=== PATIENT | female | born 1970 | race American Indian/Alaskan Native ===

== ENCOUNTER 2017-03-30 19:33 | Emergency (ER) | payer MEDICAID ==
[2017-03-30 20:21] VITALS: BP 127/80
== END 2017-03-31 00:11 | disposition left against medical advice (07) ==
LOC: ED 19:33
DX: L02.91 Cutaneous abscess, unspecified (principal); Z53.21 Procedure and treatment not carried out due to patient leaving prior to being seen by health care provider

== ENCOUNTER 2018-12-07 15:16 | Emergency (ER) | payer MEDICAID, OTHER ==
[2018-12-07 15:32] VITALS: BP 141/87
[2018-12-07] MEDS ORDERED: NORCO 5/325 PO STA (15:33)
--- NOTE | 2018-12-07 15:36 | Emergency Department Report ---
Blank Doc - Documentation Documentation: 48 Y/O FEMALE WITH FEW DAY HISTORY OF LEFT SHOULDER AND CHEST PAIN WORSE WITH ROM AND DEEP RESPIRATION. NO SPUTUM OR COUGH. DENIES TRAUMA.
--- NOTE | 2018-12-07 16:27 | XRay Report ---
PROCEDURE: XR CHEST ROUTINE 2V TECHNIQUE: PA and lateral chest radiographs were obtained. HISTORY: wheeze COMPARISONS: None. FINDINGS: There is hyperinflation consistent with COPD. There is prominence of the interstitial markings in both lungs with peribronchial thickening, acute v ersus chronic. There is no evidence of focal infiltrate, pneumothorax or pleural fluid collection. The cardiomediastinal silhouette is normal in appearance. The bony structures are notable for dextrocurvature of the thoracic spine. IMPRESSION: 1. Evidence of COPD. 2. Prominence in the interstitial markings in both lungs with peribronchial thickening, acute versus chronic. If further imaging is required, CT chest may be helpful. This document is electronically signed by Sherlyn Calderon MD., December 07 2018 04:25:04 PM ET
--- NOTE | 2018-12-07 16:29 | XRay Report ---
PROCEDURE: XR SHOULDER 2+V LT TECHNIQUE: Frontal and Y views left shoulder HISTORY: LEFT SHOULDER PAIN WITH ROM COMPARISONS: None FINDINGS: There is no evidence of acute fracture or subluxation. The joint spaces appear to be maintained. There appears to be deformity of the mid clavicle which may represent sequela of previous fracture. The soft tissues are unremarkable. IMPRESSION: 1. Appearance of deformity of the clavicle which may represent sequela of previous fracture. 2. Otherwise unremarkable study. If the patient remains symptomatic, MRI may be helpful. This document is electronically signed by Sherlyn Calderon MD., December 07 2018 04:27:34 PM ET
--- NOTE | 2018-12-07 16:53 | Emergency Department Report ---
ED Extremity Problem HPI - General Chief complaint: Pain General Stated complaint: CHEST PAIN/SHOULDERS/BACK PAIN Time Seen by Provider: 12/07/18 15:32 Source: patient Mode of arrival: Ambulatory Limitations: No Limitations - History of Present Illness Initial comments: Pt is a 48 yo female who presents to the ED with c/o left sided shoulder pain that began a couple of days ago. she states she has associated left sided neck pain and left chest wall pain. the patient states her pain is worse with movement. she states she woke up with it one morning and states she thought she slept wrong. She denies any fall, injury, or trauma. She denies any cough, fever, SOB, congestion, or any other sx. The patient denies any PMHx. She is a current every day smoker. pt states she had a clavicle fx when she was 19. Severity scale (0 -10): 5 - Related Data Previous Rx's Medication Instructions Recorded Last Taken Type Cyclobenzaprine [Flexeril] 10 mg PO QHS PRN #10 tablet 12/07/18 Unknown Rx Ibuprofen [Motrin 800 MG tab] 800 mg PO Q8HR PRN #20 tablet 12/07/18 Unknown Rx Prednisone [predniSONE 10 mg 10 mg PO .TAPER #1 tab.ds.pk 12/07/18 Unknown Rx (6-Day Pack, 21 Tabs)] Allergies Allergy/AdvReac Type Severity Reaction Status Date / Time No Known Allergies Allergy Verified 12/07/18 15:18 ED Review of Systems ROS: Stated complaint: CHEST PAIN/SHOULDERS/BACK PAIN Other details as noted in HPI Comment: All other systems reviewed and negative ED Past Medical Hx - Past Medical History Previous Medical History?: No - Surgical History Past Surgical History?: No - Social History Smoking Status: Never Smoker Substance Use Type: None - Medications Home Medications: Home Medications Medication Instructions Recorded Confirmed Last Taken Type Cyclobenzaprine [Flexeril] 10 mg PO QHS PRN #10 tablet 12/07/18 Unknown Rx Ibuprofen [Motrin 800 MG tab] 800 mg PO Q8HR PRN #20 tablet 12/07/18 Unknown Rx Prednisone [predniSONE 10 mg 10 mg PO .TAPER #1 tab.ds.pk 12/07/18 Unknown Rx (6-Day Pack, 21 Tabs)] ED Physical Exam - General Limitations: No Limitations General appearance: alert, in no apparent distress - Head Head exam: Present: atraumatic, normocephalic - Eye Eye exam: Present: normal appearance, PERRL - Neck Neck exam: Present: normal inspection, full ROM, other (no midline c-spine tenderness, no step offs, no deformities ) - Respiratory Respiratory exam: Present: normal lung sounds bilaterally, chest wall tenderness (reproducible left anterior chest wall pain to palpation ). Absent: respiratory distress, wheezes, rales, rhonchi, stridor, accessory muscle use, decreased breath sounds, prolonged expiratory - Cardiovascular Cardiovascular Exam: Present: regular rate, normal rhythm, normal heart sounds. Absent: systolic murmur, diastolic murmur, rubs, gallop - Extremities Exam Extremities exam: Present: other (pt has FROM of the bilateral fingers, wrists, elbows, and shoulders with no difficulty, pt is neurovascularly intact, pt has bony prominence in the left clavicle from prior clavicle fx, pt has TTP over the left trapzeius muscle) - Neurological Exam Neurological exam: Present: alert, oriented X3, CN II-XII intact, normal gait. Absent: motor sensory deficit - Psychiatric Psychiatric exam: Present: normal affect, normal mood - Skin Skin exam: Present: warm, dry, intact ED Course Vital Signs 12/07/18 15:29 Temperature 98.3 F Pulse Rate 70 Respiratory 16 Rate Blood Pressure 141/87 [Left] O2 Sat by Pulse 100 Oximetry ED Medical Decision Making - Radiology Data Radiology results: report reviewed PROCEDURE: XR SHOULDER 2+V LT TECHNIQUE: Frontal and Y views left shoulder HISTORY: LEFT SHOULDER PAIN WITH ROM COMPARISONS: None FINDINGS: There is no evidence of acute fracture or subluxation. The joint spaces appear to be maintained. There appears to be deformity of the mid clavicle which may represent sequela of previous fracture. The soft tissues are unremarkable. IMPRESSION: 1. Appearance of deformity of the clavicle which may represent sequela of previous fracture. 2. Otherwise unremarkable study. If the patient remains symptomatic, MRI may be helpful. This document is electronically signed by Sherlyn Calderon MD., December 07 2018 04:27:34 PM ET Transcribed By: ED Dictated By: SHERLYN CALDERON MD Electronically Authenticated By: SHERLYN CALDERON MD Signed Date/Time: 12/07/18 5330 PROCEDURE: XR CHEST ROUTINE 2V TECHNIQUE: PA and lateral chest radiographs were obtained. HISTORY: wheeze COMPARISONS: None. FINDINGS: There is hyperinflation consistent with COPD. There is prominence of the interstitial markings in both lungs with peribronchial thickening, acute versus chronic. There is no evidence of focal infiltrate, pneumothorax or pleural fluid collection. The cardiomediastinal silhouette is normal in appearance. The bony structures are notable for dextrocurvature of the thoracic spine. IMPRESSION: 1. Evidence of COPD. 2. Prominence in the interstitial markings in both lungs with peribronchial thickening, acute versus chronic. If further imaging is required, CT chest may be helpful. This document is electronically signed by Sherlyn Calderon MD., December 07 2018 04:25:04 PM ET Transcribed By: ED Dictated By: SHERLYN CALDERON MD Electronically Authenticated By: SHERLYN CALDERON MD Signed Date/Time: 12/07/181626 - Medical Decision Making Pt is a 48 yo female who presents to the ED with c/o left sided shoulder pain that began a couple of days ago. she states she has associated left sided neck pain and left chest wall pain. the patient states her pain is worse with movement. she states she woke up with it one morning and states she thought she slept wrong. She denies any fall, injury, or trauma. She denies any cough, fever, SOB, congestion, or any other sx. The patient denies any PMHx. She is a current every day smoker. pt states she had a clavicle fx when she was 19. XR of the left shoulder: . Appearance of deformity of the clavicle which may represent sequela of previous fracture. 2. Otherwise unremarkable study. If the patient remains symptomatic, MRI may be helpful. XR chest: 1. Evidence of COPD. Prominence in the interstitial markings in both lungs with peribronchial thickening, acute versus chronic. If further imaging is required, CT chest may be helpful. Pt has TTP over the left trapezius muscle, pt has FROM of the left shoulder, no AC joint tenderness, pt has reproducible left anterior chest wall pain. pt given hydrocodone by another provider, pt was advised that her would need to drive her home. Please take medication as prescribed. only use muscle relaxer as needed and do not drive or operate heavy machinery while taking. may use ice, rest, heat, epsom salt bath. follow up with a primary care doctor in the next 2-3 days. return to the emergency room for any new or worsening symptoms. Critical care attestation.: If time is entered above; I have spent that time in minutes in the direct care of this critically ill patient, excluding procedure time. ED Disposition Clinical Impression: Neck pain on left side, Left-sided chest wall pain Left shoulder pain Qualifiers: Chronicity: acute Qualified Code(s): M25.512 - Pain in left shoulder COPD (chronic obstructive pulmonary disease) Qualifiers: COPD type: unspecified COPD Qualified Code(s): J44.9 - Chronic obstructive pulmonary disease, unspecified Disposition: TO HOME OR SELFCARE Is pt being admited?: No Does the pt Need Aspirin: No Condition: Stable Instructions: Muscle Strain (ED), Costochondritis (ED), Chronic Obstructive Pulmonary Disease (ED) Additional Instructions: Please take medication as prescribed. only use muscle relaxer as needed and do not drive or operate heavy machinery while taking. may use ice, rest, heat, epsom salt bath. follow up with a primary care doctor in the next 2-3 days. return to the emergency room for any new or worsening symptoms. Prescriptions: Cyclobenzaprine [Flexeril] 10 mg PO QHS PRN #10 tablet PRN Reason: Muscle Spasm Ibuprofen [Motrin 800 MG tab] 800 mg PO Q8HR PRN #20 tablet PRN Reason: Pain, Moderate (4-6) Prednisone [predniSONE 10 mg (6-Day Pack, 21 Tabs)] 10 mg PO .TAPER #1 tab.ds.pk Referrals: JENNIFER KHALIL MD [Primary Care Provider] - 2-3 Days Time of Disposition: 16:56 Print Language: DOMINICAN
== END 2018-12-07 17:04 | disposition home or self-care (01) ==
LOC: ED 15:16
DX: M25.512 Pain in left shoulder (principal); M54.2 Cervicalgia; R07.89 Other chest pain; J44.9 Chronic obstructive pulmonary disease, unspecified
CPT/HCPCS: 71046; 99283